=== PATIENT | male | born 1995 | race Caucasian/White ===

== ENCOUNTER 2017-09-19 00:22 | Emergency (ER) | payer BC ==
[~2017-09-19] VITALS: Ht 167.6 cm; Wt 73.4 kg
[2017-09-19 00:26] VITALS: TEMP 36.7; Ht 167.6 cm; Wt 73.4 kg
[2017-09-19] MEDS ORDERED: KETOROLAC TROMETHAMINE 30 MG/ML VIAL IV STA (01:13)
[2017-09-19] MEDS ORDERED: SODIUM CHLORIDE 0.9% 1000ML 1,000 ML IV ONE (01:15)
[2017-09-19 01:27] VITALS: O2SAT 98
[2017-09-19 01:36] LABS: BASO % 0.2 %; BASO ABS # 0.02 K/uL (0-0.2); EOS % 0.5 %; EOS ABS # 0.05 K/uL (0-0.5); HEMATOCRIT 39.9 % (42-52); HEMOGLOBIN 14.4 g/dL (14.0-18.0); IG# 0.01 K/uL (0.00-0.02); LYMPH % 20.6 %; LYMPH ABS # 2.12 K/uL (1.2-3.4); MEAN CELL VOLUME 83.6 fL (80-100); MEAN CORPUSCULAR HEMOGLOBIN 30.2 pg (25-34); MEAN CORPUSCULAR HGB CONC 36.1 g/dl (32-36); MEAN PLATELET VOLUME 9.6 fL (7.4-10.4); MONO ABS # 0.72 K/uL (0.11-0.59); NEUT % 71.6 %; NEUT ABS # 7.37 K/uL (1.4-6.5); PLATELET COUNT 238 K/uL (130-400); RED CELL DISTRIBUTION WIDTH CV 11.9 % (11.5-14.5); RED CELL DISTRIBUTION WIDTH SD 36.3 fL (36.4-46.3); WHITE BLOOD COUNT 10.29 K/uL (4.8-10.8)
[2017-09-19 01:53] LABS: ALBUMIN 3.9 gm/dl (3.4-5.0); CALCIUM 8.7 mg/dl (8.5-10.1); CREATININE 1.08 mg/dl (0.60-1.40); POTASSIUM 3.5 mmol/L (3.5-5.1)
[2017-09-19 01:56] LABS: TOTAL PROTEIN 7.7 gm/dl (6.4-8.2)
[2017-09-19 03:28] VITALS: BP 114/54; PULSE 74; O2SAT 98
--- NOTE | 2017-09-19 07:04 | DIAGNOSTIC IMAGING REPORT ---
HEAD CT NONCONTRAST CT DOSE: 537.48 mGy.cm HISTORY: Syncope and fall. Head injury TECHNIQUE: Multiaxial CT images of the head were performed without the use of intravenous contrast. Automated exposure control was utilized for this study. A dose lowering technique was utilized adhering to the principles of ALARA. Comparison: None. Findings: The paranasal sinuses and mastoid air cells are clear. The calvarium and skull base are intact. The ventricles and sulci are within normal limits. There is no mass, hematoma, midline shift, or acute infarct. Impression: No acute intracranial abnormality. Electronically signed by: Patrick Hartley M.D. 09/19/2017 7:03 AM Dictated Date/Time: 09/19/2017 7:02 AM
--- NOTE | 2017-09-23 01:03 | EMERGENCY ROOM VISIT NOTE ---
History First contact with patient: 01:05 Chief Complaint: DIZZY Stated Complaint: DIZZINESS,SHAKING,STOMACH ACHE Nursing Triage Summary: Patient was standing at the sink, felt dizzy, next thing he remembers he was lying on the ground. Patient was diagnosed with mono 2 weeks ago and is unsure if this episode is related. History of Present Illness The patient is a 21 year old male who presents to the Emergency Room with complaints of a single episode occurred about one hour ago. The patient states that he was on his couch, went into the bathroom, and the next thing he knew he woke up on the ground. The patient did not have chest pain, chest tightness, shortness of breath, or palpitations before or after the event. The patient has not had similar episodes in the past. He was diagnosed about 2 weeks ago with mono, and has not been eating or drinking as he normally does. The patient does not have other complaints such as significant pain or other injury. No lacerations or bleeding. He considers himself otherwise usually healthy and rates his discomfort a 2/10. Review of Systems More than 10 systems were reviewed and otherwise negative with the exception of history of present illness. Past Medical/Surgical History No chronic medical disease Family History No pertinent family history Social History Smoking Status: Never Smoker Current/Historical Medications No Active Prescriptions or Reported Meds Physical Exam Vital Signs Date Time Temp Pulse Resp B/P (MAP) Pulse Ox O2 Delivery O2 Flow Rate FiO2 09/19/17 03:28 74 18 114/54 98 09/19/17 01:27 98 Room Air 09/19/17 01:26 98 Room Air 09/19/17 01:25 81 09/19/17 00:26 36.7 74 16 133/77 100 Room Air Physical Exam VITALS: Vitals are noted on the nurse's note and reviewed by myself. Vital signs stable. GENERAL: Well-developed, well-nourished, white male, who is in no acute distress and resting comfortably. Patient is cooperative with the examination. GCS 15 HEAD: Anterior forehead abrasion without laceration measuring approximately 2 cm in diameter. There is a very small amount of edema in this area. No barry sign or raccoon eyes. EARS: External ear normal. External auditory canals clear, tympanic membranes pearly desai without erythema or effusion bilaterally. EYES: Pupils equal round and reactive to light and accommodation. Conjunctivae without injection, sclerae without icterus. Extraocular movements intact. NOSE: Patent, turbinates without inflammation or discharge. MOUTH: Mucous membranes moist. Tonsils are not enlarged. Pharynx without erythema, blood, or exudate. Uvula midline. Airway patent. NECK: Supple without nuchal rigidity. No lymphadenopathy. No thyromegaly. Cervical spine is nontender. HEART: Regular rate and rhythm without murmurs gallops or rubs. LUNGS: Clear to auscultation bilaterally without wheezes, rales or rhonchi. No retractions or accessory muscle use. ABDOMEN: Positive normal bowel sounds x 4. Soft, nontender, without masses or organomegaly. No guarding or rebound tenderness. MUSCULOSKELETAL: No muscle atrophy, erythema, or edema noted. Full range of motion without joint tenderness in all extremities. No tenderness to palpation. Normal gait. Strength 5/5 throughout. NEURO: Patient was alert and oriented to person place and time. CN II through XII grossly intact. No focal neurological deficits. Deep tendon reflexes 2+ throughout. SKIN: The skin was without rashes, erythema, edema, or bruising. Capillary refill less than 2 seconds. Medical Decision & Procedures ER Provider Diagnostic Interpretation: HEAD CT NONCONTRAST CT DOSE: 537.48 mGy.cm HISTORY: Syncope and fall. Head injury TECHNIQUE: Multiaxial CT images of the head were performed without the use of intravenous contrast. Automated exposure control was utilized for this study. A dose lowering technique was utilized adhering to the principles of ALARA. Comparison: None. Findings: The paranasal sinuses and mastoid air cells are clear. The calvarium and skull base are intact. The ventricles and sulci are within normal limits. There is no mass, hematoma, midline shift, or acute infarct. Impression: No acute intracranial abnormality. Laboratory Results 09/19/17 01:28 Red Blood Count 4.77, Mean Corpuscular Volume 83.6, Mean Corpuscular Hemoglobin 30.2, Mean Corpuscular Hemoglobin Concent 36.1, Mean Platelet Volume 9.6, Neutrophils (%) (Auto) 71.6, Lymphocytes (%) (Auto) 20.6, Monocytes (%) (Auto) 7.0, Eosinophils (%) (Auto) 0.5, Basophils (%) (Auto) 0.2, Neutrophils # (Auto) 7.37, Lymphocytes # (Auto) 2.12, Monocytes # (Auto) 0.72, Eosinophils # (Auto) 0.05, Basophils # (Auto) 0.02 09/19/17 01:28 Test 09/19/17 01:28 09/19/17 01:38 White Blood Count 10.29 K/uL (4.8-10.8) Red Blood Count 4.77 M/uL (4.7-6.1) Hemoglobin 14.4 g/dL (14.0-18.0) Hematocrit 39.9 % (42-52) Mean Corpuscular Volume 83.6 fL (80-100) Mean Corpuscular Hemoglobin 30.2 pg (25-34) Mean Corpuscular Hemoglobin Concent 36.1 g/dl (32-36) Platelet Count 238 K/uL (130-400) Mean Platelet Volume 9.6 fL (7.4-10.4) Neutrophils (%) (Auto) 71.6 % Lymphocytes (%) (Auto) 20.6 % Monocytes (%) (Auto) 7.0 % Eosinophils (%) (Auto) 0.5 % Basophils (%) (Auto) 0.2 % Neutrophils # (Auto) 7.37 K/uL (1.4-6.5) Lymphocytes # (Auto) 2.12 K/uL (1.2-3.4) Monocytes # (Auto) 0.72 K/uL (0.11-0.59) Eosinophils # (Auto) 0.05 K/uL (0-0.5) Basophils # (Auto) 0.02 K/uL (0-0.2) RDW Standard Deviation 36.3 fL (36.4-46.3) RDW Coefficient of Variation 11.9 % (11.5-14.5) Immature Granulocyte % (Auto) 0.1 % Immature Granulocyte # (Auto) 0.01 K/uL (0.00-0.02) Anion Gap 6.0 mmol/L (3-11) Est Creatinine Clear Calc Drug Dose 99.2 ml/min Estimated GFR () 114.7 Estimated GFR (Non- 99.0 BUN/Creatinine Ratio 17.7 (10-20) Calcium Level 8.7 mg/dl (8.5-10.1) Magnesium Level 2.2 mg/dl (1.8-2.4) Total Bilirubin 0.3 mg/dl (0.2-1) Aspartate Amino Transf (AST/SGOT) 22 U/L (15-37) Alanine Aminotransferase (ALT/SGPT) 28 U/L (12-78) Alkaline Phosphatase 92 U/L (45-117) Total Protein 7.7 gm/dl (6.4-8.2) Albumin 3.9 gm/dl (3.4-5.0) Globulin 3.8 gm/dl (2.5-4.0) Albumin/Globulin Ratio 1.0 (0.9-2) Bedside Troponin I < 0.030 ng/ml (0-0.045) Medications Administered Medications (Trade) Dose Ordered Sig/Krista Route Start Time Stop Time Status Last Admin Dose Admin Sodium Chloride 1,000 ml @ 999 mls/hr Q1H1M ONCE IV 09/19/17 01:15 09/19/17 02:15 DC 09/19/17 01:15 999 MLS/HR Ketorolac Tromethamine (Toradol Inj) 30 mg NOW STAT IV 09/19/17 01:13 09/19/17 01:15 DC 09/19/17 01:13 30 MG ECG Change: Normal sinus rhythm @73 bpm Rightward axis Borderline ECG No previous ECGs available Confirmed by DAVID SUGGS ([id number]) on 09/19/2017 4:18:22 PM ED Course Physical exam and history were performed. Nursing notes, EMR, and Medication List were personally reviewed. Patient appears to have suffered a single episode at home just prior to arrival. On examination the patient appears well without significant trauma. EKG was performed and interpreted by myself as normal sinus rhythm at 73 beats rated without ischemia or ectopy. The patient was placed on a rate reviewer. He was hydrated with normal saline. IV access was established and labs were obtained. CT scan of the head was performed. The patient's blood work is as above and was reviewed. He does not have a significant elevated white blood cell count or gross anemia, bandemia, or significant electrolyte imbalance. Transaminases are not diagnostic. Troponin [address] scan of the head does not show fracture or bleed. Overall the patient appears well for discharge home. He likely had a vasovagal episode causing his symptoms tonight. He is to follow with [facility] in the next few days for recheck. He was otherwise invited back to the ER with any new, worsening, or concerning symptoms. The chart was completed utilizing [employer] Voice Recognition Software. Grammatical errors, random word insertions, pronoun errors, and incomplete sentences are an occasional consequence of this system due to software limitations, ambient noise, and hardware issues. Any formal questions or concerns about the content, text, or information contained within the body of this dictation should be directly addressed to the provider for clarification. . Medical Decision Differential diagnosis: Etiologies such as concussion, contusion, fracture, subdural hematoma, epidural hematoma, intraparenchymal hemorrhage, as well as other traumatic pathologies were entertained. Impression Primary Impression: Syncope and collapse Additional Impression: Head injury Departure Information Dispostion Home / Self-Care Condition GOOD Prescriptions No Active Prescriptions or Reported Meds Forms HOME CARE DOCUMENTATION FORM, IMPORTANT VISIT INFORMATION Patient Instructions My [facility] Additional Instructions You were seen and evaluated today on an emergency basis only. This is not a substitute for, or an effort to provide, complete comprehensive medical care. It is not possible to recognize and treat all injuries or illnesses in a single emergency department visit. For this reason it is recommended that you followup with [facility] in the next 2-3 days for recheck of your condition. Drink plenty of fluids and remain well hydrated. You are welcome to return to the emergency department anytime with new, worsening, or concerning symptoms. Problem Qualifiers
== END 2017-09-19 03:20 | disposition home or self-care (01) ==
LOC: C.EDB 00:24 → C.EDA 03:20
DX: S06.9X9A Unspecified intracranial injury with loss of consciousness of unspecified duration, initial encounter (principal); R55 Syncope and collapse; W19.XXXA Unspecified fall, initial encounter

== ENCOUNTER → 2017-11-24 | Outpatient (CLI) | payer BC | END | disposition home or self-care (01) | LOC: C.LAB 18:19 | PROVIDERS: ATTEND Otolaryngology | DX: J36 Peritonsillar abscess (principal) ==